=== PATIENT | female | born 1975 | race Caucasian/White ===

== ENCOUNTER 2020-12-03 06:25 | Emergency (ER) | payer OTHER ==
[~2020-12-03] VITALS: Ht 160 cm; Wt 73.9 kg
[~2020-12-03 06:25] MED LIST: ACYCLOVIR400 MG PO; DHEA25 M1 PO; PERCOCET 5-3251 EACH PO; PERCOCET 7.5-31 EACH PO; RANITIDINE HCL150 MG PO; TUMS200 MG PO; VITAMIN D310 MCG/1 M PO; VITAMIN D400 UNI2 PO; ZYRTEC10 MG PO
== END 2020-12-03 09:15 | disposition home or self-care (01) ==
LOC: ED 06:25
DX: O03.4 Incomplete spontaneous abortion without complication (principal); Z88.2 Allergy status to sulfonamides; Z3A.10 10 weeks gestation of pregnancy
CPT/HCPCS: 76801; 76817; 80048; 84702; 85025; 99284-25